=== PATIENT | female | born 1985 | race Caucasian/White ===

== ENCOUNTER → 2023-01-20 15:35 | Outpatient (CLI) | payer OTHER, SELFPAY ==
--- NOTE | 2023-01-20 | DI.MG.S_ITS ---
BILATERAL DIGITAL SCREENING MAMMOGRAM 3D/2D WITH CAD: 01/20/2023 CLINICAL: Routine screening. Baseline exam. Family history of breast cancer. No prior exams were available for comparison. Both breasts are heterogeneously dense, which may obscure small masses (category c / 51-75% glandular tissue). Current study was also evaluated with a Computer Aided Detection (CAD) system. No significant masses, calcifications, or other findings are seen in either breast. IMPRESSION: NEGATIVE There is no mammographic evidence of malignancy. A 1 year screening mammogram is recommended. Based on Tyrer-Cuzick model (a risk assessment model), the patient's lifetime risk is 25.8% and her 10 year risk is 2.6%. If a patient has an elevated risk, a more comprehensive evaluation should be considered and/or a referral to a genetic counselor. The [place] [employer], [employer], and NCCN Guidelines advise the consideration of Breast MRI as an adjunct to screening mammography in patients whose Lifetime risk to develop breast cancer is 20% or higher. This exam was interpreted at Station ID: [id number]. NOTE: For mammograms, a report in lay terms will be sent to the patient. Approximately 15% of breast malignancies will not be visualized mammographically. In the management of a palpable breast mass, a negative mammogram must not discourage biopsy of a clinically suspicious lesion. Electronically Signed By: Andi card/colette:01/21/2023 17:21:43 letter sent: Normal Exam ACR BI-RADS Category 1: Negative 3341F
== END ==
PROVIDERS: PCP Internal Medicine; Referring Provider Internal Medicine; Visit Provider Internal Medicine
DX: Z12.31 Encounter for screening mammogram for malignant neoplasm of breast (principal); Z80.3 Family history of malignant neoplasm of breast
CPT/HCPCS: 77063; 77067

== ENCOUNTER 2023-09-12 06:19 | Day surgery (SDC) | payer OTHER, SELFPAY ==
[2023-09-07 08:30] VITALS: BMI 37.1
[2023-09-12] VITALS (8 sets, daily range): BP systolic 109–126; BP diastolic 61–82; PULSE 85–107; RESP 10–16; TEMP 36.2–36.7; O2SAT 96–100; BMI 37.1
--- NOTE | 2023-09-12 | PATH_ITS ---
[facility] Accession Number: [id number] No. of containers..01 Tissue . 01 Material submitted: . fallopian tube - RIGHT FALLOPIAN TUBE . 01 Diagnosis: Right Fallopian Tube, Right Salpingectomy: Hydrosalpinx. Background chronic salpingitis. Negative for atypia and malignancy. MRV 09/15/2023 1743 Local . 01 Electronically signed: . Becky Naylor MD, Pathologist NPI- [id number] . 01 Gross description: . The specimen is received in formalin labeled with the patient's name, , and right fallopian tube, consists of a fallopian tube with no fimbriae identified, measuring 6.1 cm in length by 1.0 cm in average diameter. The serosa is violaceous with an area of pinpoint hemorrhage measuring 1.2 x 0.7 cm. A disrupted cystic structure is identified measuring 2.5 x 2.4 x 1.3 cm. The cystic structure is inked blue, and sectioning reveals the cystic structure to be grossly continuous with the dilated lumen. The internal cyst wall is irregular with possible excrescences identified. The entire cyst and outside industrial sales representative cross-sections are submitted in cassettes A1-A8. ([id number]) /MRV 09/13/2023 1333 Local . 01 Microscopic: . Examination of the entire cystic structure reveals dilatation of the fallopian tube lumen and attenuated tubal epithelium; histologic features that support the diagnosis of hydrosalpinx. There is background chronic salpingitis with mild chronic inflammation (lymphocytes and plasma cells) in the stroma, and fibrotic/fused and thickened plicae. . There is no significant atypia or malignancy. . 01 Pathologist provided ICD-10: N83.8 . 01 CPT . 495369 Performed at: 01 [facility] [address] [address], [place], [place] [id number] MD Lavell Sanchez MD Phone: [phone]
[2023-09-12] MEDS: LACTATED RINGERS 1,000 ML 21 ML IV ×2 (07:00→08:55)
--- NOTE | 2023-09-12 07:17 | P.HPOB_ITS ---
History of Present Illness History of Present Illness Reason for admission: ectopic (History of) and other (Dysmenorrhea and menorrhagia) Narrative: Troy Richey is a 38 year old female who presents for diagnostic laparoscopy, chromotubation, and possible fulguration of endometriosis. Patient has a history of an ectopic with a salpingectomy on 1 side. She has not sure which 1. She has been trying to get . She has very painful and heavy menstrual cycles. [facility] Social History household members: spouse Smoking Status: Never smoker alcohol intake: current Meds Home Medications and Allergies Home Medications Medication Instructions Recorded Confirmed Type No Known Home Medications 07/14/23 07/14/23 History Allergies Allergy/AdvReac Type Severity Reaction Status Date / Time aspirin AdvReac Rash Verified 09/12/23 06:36 ibuprofen AdvReac Rash Verified 09/12/23 06:36 Exam Vital Signs (past 8 hours): - 09/12/23 06:45 Temperature 97.2 F L Pulse Rate 85 Respiratory Rate 16 Blood Pressure 115/72 Pulse Oximetry 98 Oxygen Delivery Method Room Air Oxygen Delivery Method Room Air Narrative Exam Narrative: HEENT: No thyromegaly, no anterior cervical or supraclavicular lymphadenopathy. Lungs:Clear to auscultation bilaterally, no wheezes. Cardiovascular: Regular rate and rhythm, no murmurs, rubs, or gallops. Abdomen: Well-healed Pfannenstiel scar. No hepatosplenomegaly. No masses palpable. External genitalia: Normal Vagina: Normal Cervix: Normal Bimanual exam: 6 Week size anteverted uterus. Mobile. Extremities: No edema Assessment & Plan Assessment & Plan narrative: Assessment: 38-year-old 1 para 0 with severe dysmenorrhea and menorrhagia History of an ectopic with unilateral salpingectomy (she is not sure which side) Plan: Diagnostic laparoscopy with possible fulguration of endometriosis Chromotubation The risks, benefits, and alternatives to the procedure were explained to the patient. The risks including bleeding, infection, injury to the bowel, bladder, or ureters, or uterine perforation. She understands these risks and agrees to proceed. A full par Q was held and consent form was signed. Time Spent With Patient Time with patient: less than 30 minutes
--- NOTE | 2023-09-12 07:46 | PM.PREOP ---
Pre-operative Note Interval Note History & Physical reviewed/Exam performed by Physician: Yes Changes to H&P: No H&P completed within 30 days and has changed as indicated here:: 09/12/23
--- NOTE | 2023-09-12 08:56 | SUR.OPER ---
Lithotomy on padded OR bed, head on pillow, arms secured on padded arm boards at <90 degrees abduction. Legs secured in padded yellow fins stirrups.
[2023-09-12] MEDS: BUPIVACAINE 0.5% (PF) 30 ML, EPINEPHrine 0.15 MG INJ (08:58)
[2023-09-12] MEDS: METHYLENE BLUE 50 MG/10 ML VIAL INJ (08:59)
--- NOTE | 2023-09-12 09:31 | PM.GYNOP.1 ---
Operative Date/Time/Diagnoses Date of procedure: 09/12/23 Time of procedure: 09:31 Pre-op diagnosis: Infertility History of unilateral salpingectomy secondary to ectopic Painful, heavy menstrual cycles Post-op diagnosis: same Procedure & Clinicians Procedure: Procedures Operation Date: 09/12/23 07:45 Actual Procedure Side Surgeon p Laparoscopy, Diagnostic, Chromopertubation, RIGHT SALPINGECTOMY Lisa Pacheco MD Indications: 38-year-old 1 para 0 with a history of a unilateral ectopic status salpingectomy. Heavy and painful menstrual cycles Infertility Surgeon: Lisa Pacheco Anesthesia Type: General and Local Operative Notes Findings: 7 week size anteverted uterus Partial left tube removed Normal left ovary Normal right ovary The right tube has a hydrosalpinx measuring approximately 10 cm x 5 cm and is tortuous and stuck to the ovary and uterus. Normal liver and gallbladder Normal appendix Closure Type: primary Specimen(s): right tube Applied: catheter (In and out) Estimated blood loss (mL): 5 Blood products transfused: none Procedure in detail: After informed consent was obtained, the patient was taken to the operating room where she was placed in the dorsal supine position. After adequate general endotracheal anesthesia was achieved, she was placed in the dorsal lithotomy position, and prepped and draped in the usual sterile fashion. A time-out was performed. A bivalve speculum was placed into the vagina and the anterior lip of the cervix was grasped with a single-tooth tenaculum. The cervical os was sequentially dilated until the Zumi uterine manipulator could pass easily into the endometrial cavity. Attention was then turned to the abdomen where 6 cc of 0.5% Marcaine with epinephrine were injected in the umbilical fold. A 5 mm incision was made. The Veress needle was placed into the peritoneal cavity, and its placement confirmed by aspiration and drop test. The abdominal cavity was insufflated with 3.8 L of CO2. The Veress needle was removed, and a 5 mm trocar was placed without difficulty. This trocar was found to be too short, and it was switched to a long 5 mm trocar. A second incision was made 4 cm lateral to the midline on the left side after 6 cc of 0.5% Marcaine with epinephrine were injected. A second long 5 mm trocar was placed. The pelvis and abdomen were inspected with the findings noted above. The air was escaping through the umbilical incision so the 5 mm trocar was removed. The incision was extended slightly and a 12 mm long trocar was placed. Better insufflation was achieved. The probe was used to move the right tube out of the pelvis and to break up adhesions between the ovary and the tube, and the uterus and the tube. Chromotubation with dilute methylene blue was performed and there was no spill from either the hydrosalpinx on the right side or the partial tube on the left. The right tube was grasped. The fimbriated end could not actually be identified due to the swelling. The power seal was used to cauterize and cut the mesosalpinx all the way down to the cornua of the uterus. The tube was amputated at the cornua. The camera was changed to the right lateral incision and the tube was brought through the 12 mm trocar in the midline. The pelvis was copiously irrigated with warm normal saline. There was no bleeding noted. The instruments were removed from the abdomen. The CO2 was allowed to escape. The umbilical incision was closed with 0 Vicryl on the fascia. All of the incisions were closed with 4-0 Monocryl on the skin in a subcuticular fashion. Steri-Strips and Allevyn dressings were placed. The Zumi uterine manipulator was removed from the uterus. Sponge, lap, and instrument counts were correct x2. The patient tolerated the procedure well, and was taken to PACU in stable condition. Complications: none Post-operative Condition: stable Disposition: PACU Plan for aftercare: Home after recovery
[2023-09-12] MEDS: ACETAMINOPHEN IV 1,000 MG/100 ML VIAL 400 MG IV (09:34)
[2023-09-12] MEDS: HYDROMORPHONE 1 MG INJ IV (09:43)
[2023-09-12] MEDS: KETOROLAC 30 MG/ML VIAL IV (10:06)
[2023-09-12] MEDS: OXYCODONE IR 5 MG TABLET PO (10:15)
== END 2023-09-12 11:09 | disposition home or self-care (01) ==
PROVIDERS: PCP Internal Medicine; Referring Provider Obstetrics & Gynecology; Visit Provider Obstetrics & Gynecology
PROC: (CPT 49320; principal; 2023-09-12 07:45)
DX: N97.9 Female infertility, unspecified (principal); N92.0 Excessive and frequent menstruation with regular cycle; N94.6 Dysmenorrhea, unspecified; N70.11 Chronic salpingitis; N83.521 Torsion of right fallopian tube; N73.6 Female pelvic peritoneal adhesions (postinfective)
CPT/HCPCS: 58661; 58350; 81025; J0136; J0171; J0360; J1100; J1170; J1885; J2250; J2704; J3010; J3490; Q9968

== ENCOUNTER → 2024-02-09 07:35 | Outpatient (CLI) | payer OTHER, SELFPAY ==
--- NOTE | 2024-02-09 07:36 | DI.MG.S_ITS ---
BILATERAL DIGITAL SCREENING MAMMOGRAM 3D/2D WITH CAD: 02/09/2024 CLINICAL: Routine screening. Family history of breast cancer. Comparison is made to exam dated: 01/20/2023 mammogram - [facility]. Both breasts are heterogeneously dense, which may obscure small masses (category c / 51-75% glandular tissue). Current study was also evaluated with a Computer Aided Detection (CAD) system. No significant masses, calcifications, or other findings are seen in either breast. There has been no significant interval change. IMPRESSION: NEGATIVE There is no mammographic evidence of malignancy. A 1 year screening mammogram is recommended. Based on Tyrer-Cuzick model (a risk assessment model), the patient's lifetime risk is 29.3% and her 10 year risk is 3.3%. If a patient has an elevated risk, a more comprehensive evaluation should be considered and/or a referral to a genetic counselor. The [place] [employer], [employer] [employer], and NCCN Guidelines advise the consideration of Breast MRI as an adjunct to screening mammography in patients whose Lifetime risk to develop breast cancer is 20% or higher. This exam was interpreted at Station ID: [id number]. NOTE: For mammograms, a report in lay terms will be sent to the patient. Approximately 15% of breast malignancies will not be visualized mammographically. In the management of a palpable breast mass, a negative mammogram must not discourage biopsy of a clinically suspicious lesion. Electronically Signed By: Andi card/colette:02/09/2024 16:14:57 letter sent: Normal Exam ACR BI-RADS Category 1: Negative 3341F
== END ==
LOC: MAMMO 07:35
PROVIDERS: PCP Internal Medicine; Referring Provider Internal Medicine; Visit Provider Internal Medicine
DX: Z12.31 Encounter for screening mammogram for malignant neoplasm of breast (principal); Z80.3 Family history of malignant neoplasm of breast; R92.333 Mammographic heterogeneous density, bilateral breasts
CPT/HCPCS: 77063; 77067

== ENCOUNTER → 2024-05-09 15:43 | Outpatient (CLI) | payer OTHER, SELFPAY ==
--- NOTE | 2024-05-09 15:44 | DI.MRI.S_ITS ---
PROCEDURE: MR HEAD/BRAIN WO CON INDICATIONS: BREAST CANCER SCREENING/FAM HISTORY/HEADACHES TECHNIQUE: Noncontrast axial T1 spin echo, axial T2 fast spin echo, sagittal and axial FLAIR, coronal T2 fast spin echo, axial gradient echo, axial diffusion and ADC through the brain. COMPARISON: None. FINDINGS: Image quality: Excellent. CSF Spaces: Basal cisterns are patent. No extra-axial fluid collections. Ventricles are normal in size and shape. Brain: No intracranial masses or hemorrhage. Boo/white matter interface is normal. Brainstem appears normal. Diffusion-weighted images demonstrate no acute infarct. No chronic ischemic insults. Normal intravascular flow voids are present. Skull and face: Calvarium has normal marrow signal. Orbits appear normal. Sinuses: Iyfs-mu-[id number] mucosal thickening can be seen involving the anterior ethmoid air cells and the frontal sinuses. No abnormal fluid is seen within the mastoid air cells. IMPRESSION: Unremarkable intracranial study, without an imaging explanation found for the patient's presenting history of headache. To the limits of this noncontrast study, no findings of intracranial masses or mass effect can be seen. Dictated by: Feng Amaya M.D. on 05/09/2024 at 15:59 Approved by: Feng Amaya M.D. on 05/09/2024 at 16:00
--- NOTE | 2024-05-09 15:44 | DI.MRI.S_ITS ---
BREAST MRI OF BOTH BREASTS: 05/09/2024 CLINICAL: High Risk Screening. PROCEDURE: MR BREAST BI WO/W CON INDICATIONS: BREAST CANCER SCREENING/FAM HISTORY/HEADACHES TECHNIQUE: The patient was placed prone in a dedicated breast imaging coil. Precontrast axial STIR and 3D FLASH without fat saturation sequences were obtained. Both before and after bolus injection of contrast, sequential 1-minute axial 3D FLASH with fat saturation sequences for 3 time points, with subtraction images and maximum intensity projections (MIP's) generated. Delayed sagittal FLASH images with fat saturation were also obtained. CONSTRAST: 20 cc Prohance. Computer-aided detection, including computer algorithm analysis of MRI image data for lesion detection and characterization, pharmacokinetic analysis, with further physician review for interpretation, was performed. COMPARISON: [facility], SCREENING MAMMO BI, 02/09/2024, 8:10. [facility], SCREENING MAMMO BI, 01/20/2023, 16:02. FINDINGS: Image quality: Excellent. There is mild background parenchymal enhancement. Right breast: No mass or suspicious enhancement. Left breast: No mass or suspicious enhancement. Miscellaneous: No enlarged lymph nodes. IMPRESSION: NEGATIVE No mass or suspicious enhancement. No enlarged lymph nodes. BIRADS 1. A 1 year screening mammogram is recommended. 02/09/2025 screening mammogram. Recommend continued annual screening breast MRI. COMMENT: The imaging literature indicates that a negative contrast breast MRI examination has a high sensitivity and a moderate specificity for detecting and excluding invasive carcinomas to a detection threshold of 3-5 mm; nonetheless, appropriate clinical and mammographic follow-up are recommended. MRI is not sensitive for detecting DCIS (ductal carcinoma in situ) and may not detect large invasive neoplasms that show only minimal enhancement such as mucinous carcinoma. If there are suspicious calcifications or clinically worrisome palpable masses, then biopsy should still be considered. Invasive neoplasms can be hidden by co-existent and benign enhancement caused by mastitis, hormone therapy effects, radiation therapy, , and recent biopsy or surgery. False positive examinations can occur in a number of circumstances, including breasts that have recently been subject to invasive procedures and those that contain atypical ductal hyperplasia, hormonally stimulated glandular tissue, fat necrosis, or radial scars. Dictated by: Jamal Stevens M.D. on 05/10/2024 at 18:32 This exam was interpreted at Station ID: [id number]. Electronically Signed By: Jaaml Stevens M.D. slc/:05/10/2024 18:40:31 letter sent: Normal Exam ACR BI-RADS Category 1: Negative
== END ==
LOC: MRI 15:44
PROVIDERS: PCP Internal Medicine; Referring Provider Internal Medicine; Visit Provider Internal Medicine
DX: R51.9 Headache, unspecified (principal); Z12.39 Encounter for other screening for malignant neoplasm of breast; Z80.3 Family history of malignant neoplasm of breast
CPT/HCPCS: 70551; 77049; A9579

== ENCOUNTER → 2024-06-14 11:36 | Outpatient (CLI) | payer OTHER, SELFPAY ==
[2024-06-15 03:12] LABS: RPR Screen Non Reactive (Non Reactive)
[2024-06-15 21:38] LABS: ANA Screen, IFA Negative (.)
[2024-06-17 16:36] LABS: Angiotensin Converting Enzyme 65 U/L (14-82)
[2024-06-18 12:11] LABS: QuantiFERON Mitogen Value >10.00 IU/mL (.); QuantiFERON Nil Value 0.05 IU/mL (.); QuantiFERON TB Gold Plus Negative (Negative); QuantiFERON TB1 Ag Value 0.05 IU/mL (.); QuantiFERON TB2 Ag Value 0.07 IU/mL (.)
== END ==
PROVIDERS: PCP Internal Medicine; Referring Provider Internal Medicine; Visit Provider Internal Medicine
DX: H44.133 Sympathetic uveitis, bilateral (principal)
CPT/HCPCS: 36415; 82164; 85549; 86038; 86480; 86592